=== PATIENT | male | born 1950 | race Caucasian/White ===

== ENCOUNTER → 2018-07-02 | Outpatient (CLI) | payer OTHER ==
[~2018-07-02] MED LIST: ACETAMINOPHEN325 M1 PO; ALLOPURINOL 30300 M2 PO; NEXIUM 40 MG CA40 M1 PO; NORCO 5-325 TA1 EACH PO; SONATA10 MG PO; ZPAK PO
== END ==
LOC: MRI 11:21
DX: S83.232A Complex tear of medial meniscus, current injury, left knee, initial encounter (principal); S83.282A Other tear of lateral meniscus, current injury, left knee, initial encounter; M25.462 Effusion, left knee; M71.22 Synovial cyst of popliteal space [Baker], left knee; M22.42 Chondromalacia patellae, left knee; X58.XXXA Exposure to other specified factors, initial encounter; Y93.89 Activity, other specified; Y92.89 Other specified places as the place of occurrence of the external cause; Y99.8 Other external cause status

== ENCOUNTER 2018-08-06 05:26 | Day surgery (SDC) | payer OTHER ==
[~2018-08-06] VITALS: Ht 177.8 cm; Wt 108.0 kg
[~2018-08-06 05:26] MED LIST changes: +FLOMAX0.4 MG PO; +NORVASC5 MG PO; +TRAZODONE HCL100 MG PO
[2018-08-06 06:27] VITALS: BP 131/78
[2018-08-06 08:45] VITALS: BP 131/78
--- NOTE | 2018-08-06 09:26 | O ---
[facility] [place] [address] OPERATIVE REPORT Name: OSEAS SEN Room #: 150-7 [facility]..#: [id number] Admission: 08/06/18 ������������������ Attend Phys: Gomez Odonnell MD Discharge: ������������������ Date of : 50 Report #: [id number] THIS REPORT FOR: //name// CC: Gomez Odonnell Gabo Yusuf DATE OF SERVICE: 08/06/2018 PREOPERATIVE DIAGNOSES: Left knee pain with medial meniscus tear and degenerative chondromalacia. POSTOPERATIVE DIAGNOSES: Left knee pain with medial meniscus tear and degenerative chondromalacia. PROCEDURE: Left knee arthroscopy with partial medial meniscectomy and debridement of chondromalacia medial compartment and patellofemoral compartment. SURGEON: Gomez Odonnell MD. INDICATIONS: This 68-year-old gentleman has moderate degenerative osteoarthritis and underwent previous right total knee arthroplasty with good result. He now has moderate left knee pain, with clinical and MRI findings consistent with mild to moderate degenerative change and some tearing of the medial meniscus. He is hoping to delay or avoid total knee replacement and has elected to go ahead with arthroscopic debridement of the left knee at this time. DESCRIPTION OF PROCEDURE: The patient was taken to the operating room where he was placed under general anesthesia. Prophylactic intravenous antibiotics were administered. The left knee and leg were meticulously prepped and draped and a thigh tourniquet inflated to 300 mmHg. A lateral suprapatellar inflow cannula was placed, and the knee was inflated with normal saline. The arthroscope and probe were introduced through parapatellar tendon approaches and the various compartments sequentially visualized. The medial compartment confirmed moderate tearing of the medial meniscus extending from the mid medial aspect back to the posterior horn. This involved the inner one-half of the meniscus, which was debrided back to a more smooth even margin. The outer one-half of the meniscus remained intact and stable when appeared to be functioning adequately. The more anterior portion of the medial meniscus was in better shape and no debridement there was required. There was some associated degenerative chondromalacia in the region of the meniscus damage, particularly on the far medial border of the tibial plateau. This area was gently debrided to a smooth even margin. There was less severe, mild to moderate chondromalacia over most of the weightbearing surface of the medial femoral condyle. Very limited debridement in this area was required. Intercondylar notch reveals the cruciate ligaments to be present and functioning [address] [address] OPERATIVE REPORT Name: OSEAS SEN Room #: 150-7 [facility]#: [id number] Admission: 08/06/18 ������������������ Attend Phys: Gomez Odonnell MD Discharge: ������������������ Date of : 50 Report #: [id number] normally. The lateral compartment reveals only minor fraying of the inner margin of the lateral meniscus which was debrided. The cartilage surfaces on the lateral femoral condyle and the lateral tibial plateau seemed to be in better shape with only minor fissuring and grooving. No significant debridement here was necessary. The patellofemoral articulation revealed somewhat greater chondromalacia, particularly on the trochlear region of the distal femur. This is grade 2, moderately diffuse degenerative wear and fraying, but without any areas of exposed subchondral bone. Very limited gentle debridement, removing the rough irregular surface was performed. The corresponding surfaces on the patella were also involved with grade 2 chondromalacia and very limited debridement there was performed. The patella seemed to track nicely and appeared to be stable. The suprapatellar pouch revealed some cartilage debris, which was evacuated. No other significant structural abnormalities were identified. The knee was copiously irrigated. All excess fluid was evacuated from the knee. The knee was then injected with 80 mg of Depo-Medrol and 20 mL of 0.5% Marcaine with epinephrine. The puncture sites were closed with interrupted nylon suture. The patient was awakened and returned to recovery room in good condition. ��������������������������������������������� <ELECTRONICALLY SIGNED> ���������������������������������������� By: Gomez Odonnell MD ��������������������������������������������� 08/06/18 0926 [id number] Gomez Odonnell MD /nt
== END 2018-08-06 09:28 | disposition home or self-care (01) ==
LOC: OR 05:26 → TBA 05:27 → OR 09:28
DX: S83.242A Other tear of medial meniscus, current injury, left knee, initial encounter (principal); M94.262 Chondromalacia, left knee; I10 Essential (primary) hypertension; G47.33 Obstructive sleep apnea (adult) (pediatric); K21.9 Gastro-esophageal reflux disease without esophagitis; Z98.890 Other specified postprocedural states; Z96.651 Presence of right artificial knee joint; Z79.899 Other long term (current) drug therapy; Z87.891 Personal history of nicotine dependence; X58.XXXA Exposure to other specified factors, initial encounter; Y93.89 Activity, other specified; Y92.89 Other specified places as the place of occurrence of the external cause; Y99.8 Other external cause status
CPT/HCPCS: 50010; 50101; 50405; 51038; 54170; 56526; 57103; 62110; 62900; 70005